=== PATIENT | male | born 1960 | race Caucasian/White ===

== ENCOUNTER 2016-05-24 20:00 | Inpatient (IN) | payer OTHER, MEDICARE ==
[~2016-05-24 20:00] MED LIST: ACYC1CAP16 PO; ASPI81TA82 PO; CALTTAB5 PO; CYCL-36 PO; GLIP5 PO; LOSA50TA PO; METF-324 PO; METO25 PO; NAPR-573 PO; OMEG306C PO; OMEP20TA39 PO; OXYC15TA PO; ROSU40 PO; SYMB160A INH; TAB-TAB PO; VITA250L PO; ZOLP10TA3 PO
[2016-05-24 20:03] VITALS: BP 131/87; PULSE 79; RESP 16; TEMP 97.8; O2SAT 96
[2016-05-24] MEDS ORDERED: CARD360C PO (21:52)
[2016-05-24] MEDS ORDERED: APIX5TAB PO (21:57)
[2016-05-24] MEDS ORDERED: ATOR1TAB18 PO (22:07)
[2016-05-24 23:00] VITALS: PULSE 93
[2016-05-24] MEDS: CYCLOBENZAPRINE HCL 10 MG TAB PO SCH (23:26)
[2016-05-24] MEDS: ZOLPIDEM TARTRATE 10 MG TAB PO SCH (23:26)
[2016-05-24] MEDS: ACYCLOVIR 200 MG CAP PO SCH (23:30)
[2016-05-24] MEDS: BUDESONIDE-FORMOTEROL 160/4.5 MCG INHALER INH SCH (23:30)
[2016-05-24] MEDS: glipiZIDE 5 MG TAB PO SCH (23:44)
[2016-05-24] MEDS: ATORVASTATIN 80 MG TAB PO SCH (23:45)
[2016-05-24] MEDS: APIXABAN 5 MG TABLET PO SCH (23:48)
[2016-05-25] VITALS (18 sets, daily range): BP systolic 103–116; BP diastolic 66–71; PULSE 57–89; RESP 16–20; TEMP 97.8–98.6; O2SAT 96–99
[2016-05-25] MEDS: ACYCLOVIR 200 MG CAP PO SCH ×2 (09:48→22:46)
[2016-05-25] MEDS: DILTIAZEM-CD 180 MG CAP ER PO SCH (09:48)
[2016-05-25] MEDS: PANTOPRAZOLE SOD 20 MG DELAYED RELEASE TAB PO SCH (09:48)
[2016-05-25] MEDS: metFORMIN HCL 500 MG TAB PO SCH ×2 (09:48→18:06)
[2016-05-25] MEDS: APIXABAN 5 MG TABLET PO SCH ×2 (09:49→22:46)
[2016-05-25] MEDS: LOSARTAN 50 MG TAB PO SCH ×2 (09:49→22:47)
[2016-05-25] MEDS: BUDESONIDE-FORMOTEROL 160/4.5 MCG INHALER INH SCH ×2 (09:50→21:00)
[2016-05-25] MEDS: ATORVASTATIN 80 MG TAB PO SCH (22:46)
[2016-05-25] MEDS: glipiZIDE 5 MG TAB PO SCH (22:46)
[2016-05-25] MEDS: ZOLPIDEM TARTRATE 10 MG TAB PO SCH (22:46)
[2016-05-25] MEDS: CYCLOBENZAPRINE HCL 10 MG TAB PO SCH (22:46)
[2016-05-26] VITALS (17 sets, daily range): BP systolic 108–137; BP diastolic 63–74; PULSE 54–86; RESP 16–20; TEMP 97.5–98.2; O2SAT 96–97
[2016-05-26] MEDS: APIXABAN 5 MG TABLET PO SCH ×2 (09:00→22:15)
[2016-05-26 09:39] LABS: AUTOMATED NEUTROPHIL # 2.6 TH/MM3 (1.8-7.7); BASOPHIL % 0.5 % (0.0-2.0); EOSINOPHIL # 0.1 TH/MM3 (0-0.4); EOSINOPHIL % 2.8 % (0.0-4.0); HEMO FLAGS DIFF FINAL; LYMPH % 36.8 % (9.0-44.0); LYMPHOCYTE # 1.8 TH/MM3 (1.0-4.8); MEAN CELL VOLUME 92.9 FL (80.0-100.0); MEAN CORPUSCULAR HEMOGLOBIN 31.4 PG (27.0-34.0); MEAN CORPUSCULAR HGB CONC 33.7 % (32.0-36.0); NEUT % 51.9 % (16.0-70.0); PLATELET COUNT 117 TH/MM3 (150-450); RED BLOOD COUNT 4.09 MIL/MM3 (4.50-5.90); RED CELL DISTRIBUTION WIDTH 13.1 % (11.6-17.2)
[2016-05-26 09:42] LABS: PROTHROMBIN TIME - PATIENT 10.9 SEC (9.8-11.6)
[2016-05-26 09:58] LABS: BICARBONATE 26.9 MEQ/L (21.0-32.0); POTASSIUM 4.1 MEQ/L (3.5-5.1)
[2016-05-26] MEDS: metFORMIN HCL 500 MG TAB PO SCH (10:18)
[2016-05-26] MEDS: DILTIAZEM-CD 180 MG CAP ER PO SCH (10:18)
[2016-05-26] MEDS: ACYCLOVIR 200 MG CAP PO SCH ×2 (10:18→22:13)
[2016-05-26] MEDS: PANTOPRAZOLE SOD 20 MG DELAYED RELEASE TAB PO SCH (10:18)
[2016-05-26] MEDS: BUDESONIDE-FORMOTEROL 160/4.5 MCG INHALER INH SCH (10:19)
[2016-05-26] MEDS: LOSARTAN 50 MG TAB PO SCH ×2 (10:19→22:13)
[2016-05-26] MEDS ORDERED: SODIUM CHLORID 0.9% 500 ML BAG IV ONE (12:52)
[2016-05-26] MEDS ORDERED: ONDANSETRON HCL 4 MG/2 ML VIAL IV PUSH ONE (12:52)
[2016-05-26] MEDS ORDERED: PROPOFOL 200 MG/20 ML AMP IV ONE (12:52)
[2016-05-26] MEDS ORDERED: HEPARIN-D5W INJ 250 ML ONE (16:30)
[2016-05-26] MEDS ORDERED: fentaNYL CITRATE 250 MCG/5 ML AMP ONE (16:31)
[2016-05-26] MEDS ORDERED: ISOPROTERENOL HCL 1 MG/5 ML AMP ONE (16:31)
[2016-05-26] MEDS ORDERED: SODIUM CHLOR 0.9% 250 ML INJ 250 ML ONE (16:31)
[2016-05-26] MEDS ORDERED: HEPARIN SODIUM - IV 10,000 UNITS/10 ML VIAL ONE ×3 (16:31→19:12)
[2016-05-26] MEDS ORDERED: LEVOFLOXACIN 500 MG PREMIX INJ 100 ML IV ONE (17:02)
[2016-05-26] MEDS ORDERED: HEPARIN-NS/PF INJ 500 ML ONE (17:15)
[2016-05-26] MEDS ORDERED: PROTAMINE SULFATE 50 MG/5 ML VIAL ONE (19:12)
[2016-05-26] MEDS ORDERED: FUROSEMIDE 40 MG/4 ML VIAL ONE (19:28)
[2016-05-26] MEDS ORDERED: LIDOCAINE HCL 1% 50 ML VIAL INFIL PRN (19:45)
[2016-05-26] MEDS ORDERED: ONDANSETRON HCL 4 MG/2 ML VIAL IV PRN (19:45)
[2016-05-26] MEDS ORDERED: LORazepam 2 MG/ML VIAL IV PRN (19:45)
[2016-05-26] MEDS ORDERED: oxyCODONE/ACETAMINOPHEN 5 MG/325 MG TAB PO PRN (19:45)
[2016-05-26] MEDS ORDERED: ATROPINE SULFATE 1 MG/ML VIAL IV PRN (19:45)
[2016-05-26] MEDS ORDERED: SODIUM CHLOR 0.9% 250 ML INJ 250 ML IV PRN (19:45)
[2016-05-26] MEDS ORDERED: METOCLOPRAMIDE HCL 10 MG/2 ML VIAL IV PRN (19:45)
[2016-05-26] MEDS ORDERED: BACITRACIN OINT 0.9 GM PKT TOP ONE (19:45)
[2016-05-26] MEDS ORDERED: DO NOT ADM ANY ANTICOAGULANT DRUGS XX PRN (20:20)
[2016-05-26] MEDS ORDERED: MIDAZOLAM HCL 2 MG/2 ML VIAL ONE (20:27)
[2016-05-26] MEDS ORDERED: *morphine SULFATE 8 MG/ML PERIprocedure ONLY ONE (20:40)
[2016-05-26] MEDS: oxyCODONE/ACETAMINOPHEN 5 MG/325 MG TAB PO PRN (22:12)
[2016-05-26] MEDS: ATORVASTATIN 80 MG TAB PO SCH (22:13)
[2016-05-26] MEDS: CYCLOBENZAPRINE HCL 10 MG TAB PO SCH (22:13)
[2016-05-26] MEDS: glipiZIDE 5 MG TAB PO SCH (22:13)
[2016-05-26] MEDS: ZOLPIDEM TARTRATE 10 MG TAB PO SCH (23:31)
[2016-05-27] VITALS (13 sets, daily range): BP systolic 107–125; BP diastolic 58–72; PULSE 68–98; RESP 18; TEMP 97.5; O2SAT 92–97
[2016-05-27] MEDS: oxyCODONE/ACETAMINOPHEN 5 MG/325 MG TAB PO PRN ×2 (02:06→08:26)
[2016-05-27 05:09] LABS: APTT (PATIENT) 25.4 SEC (24.3-30.1); INTERNATIONAL NORMALIZED RATIO 1.1 RATIO; PROTHROMBIN TIME - PATIENT 11.8 SEC (9.8-11.6)
--- NOTE | 2016-05-27 07:34 | MB ---
cc: RAKESH HAWTHORNE M.D. DATE OF CONSULTATION: 05/24/2016 REASON FOR CONSULTATION: Atrial fibrillation with biventricular response unable to control with medication. I was called by Dr. Duff about Mr. Boyce, he is a 55-year-old gentleman with history of high blood pressure, chronic smoker for the past week having on multiple emergency room visit. He was cardioverted on multiple occasion and was unable to come back into sinus rhythm. Multiple medications at to be used. They decided to transfer the gentleman to my service for evaluation and management. I decided to accept the patient. The patient was admitted the chart was reviewed. He was evaluated. ALLERGIES CODEINE PNEUMOCOCCAL VACCINE. FLU VACCINE SOCIAL HISTORY: As mentioned before the gentleman used to smoke. FAMILY HISTORY Noncontributory to his current medical condition. MEDICATIONS The gentleman is on; 1. Acyclovir 200 mg twice a day. 2. Eliquis 5 mg twice per day. 3. Lipitor 80 mg a day. 4. Flexeril 5. Cardizem CD 240 mg a day. 6. Lasix 7. Glipizide. 8. Losartan 9. Metformin. 10. Protonix. 11. Ambien. REVIEW OF SYSTEMS The patient refers no chest pain or discomfort, has recurrent palpitation some shortness of breath. No fever. PHYSICAL EXAMINATION: IN GENERAL: Physical exam, fully oriented. VITAL SIGNS: Blood pressure on evaluation 131/87, pulse 79, respiratory 18. LUNGS: Ventilated. CARDIOVASCULAR SYSTEM: S1-S2 regular. ABDOMEN: Soft. No mass. EXTREMITIES: Upper extremities with no edema. LABORATORY FINDINGS: Electrocardiogram; sinus rhythm, no acute ST T wave changes. Hemoglobin 12.8, white blood cell 5.0, potassium 4.1, creatinine 0.79, INR 1.0. ASSESSMENT AND RECOMMENDATIONS Mr. Boyce has atrial fibrillation. He is on multiple medication heart rate very difficult to control, he is very symptomatic. He is on his fourth emergency room visit. The converted spontaneously and was transferred to this hospital. I had a long conversation with him and his family. Discharged home the electrophysiology study and ablation discussed. The risks, the nature and the benefit of the procedure are clearly stated to him risks include pneumothorax, cardiac perforation, stroke and even . He understood and agreed to proceed. The gentleman decided to stay in the hospital for the procedure because whenever he goes to the emergency room they send him home and he is back with severe tachyarrhythmia, dizziness and near syncope. Medication will be reevaluated. As mentioned before ablation was performed during hospitalization. MD ROSEMARIE Aparicio/dacia /7:33 PM /7:25 AM
[2016-05-27] MEDS: metFORMIN HCL 500 MG TAB PO SCH (08:16)
[2016-05-27] MEDS: APIXABAN 5 MG TABLET PO SCH (08:26)
[2016-05-27] MEDS: LOSARTAN 50 MG TAB PO SCH (08:26)
[2016-05-27] MEDS: PANTOPRAZOLE SOD 20 MG DELAYED RELEASE TAB PO SCH (08:26)
[2016-05-27] MEDS: ACYCLOVIR 200 MG CAP PO SCH (08:26)
[2016-05-27] MEDS: BUDESONIDE-FORMOTEROL 160/4.5 MCG INHALER INH SCH (08:28)
--- NOTE | 2016-05-27 08:56 | PD.CONS ---
[facility] Consult Requested By Dr. Kitchen Reason for Consult medical comanament Primary Care Physician Cesario Candelaria M.D. Diagnoses: History of Present Illness This is a 55-year-old male with history of hypertension, atrial fibrillation who was initially admitted by Dr. Kitchen in his service after Dr. Duff gave him a call. Allegedly patient has been having multiple emergency visits to the emergency department. He was cardioverted on multiple locations but unable to go back to sinus rhythm. Patient was transferred to Dr. Kitchen's service after he accepted the patient and was admitted. We were consulted 05/24/16 but apparently, consult did not go through until 05/26/16 in the afternoon. Per patient, he has been having atrial fibrillation and had multiple cardioversion at [facility]. Finally, he was sent here to the hospital by Dr. Duff , , seen by Dr. Kitchen. An ablation was done 05/26/16. Patient now feels good, no palpitations, chest pain, shortness of breath, nausea, vomiting, lightheadedness. Review of Systems ROS Limitations: Other (All other pertinent systems were reviewed and are negative.) Past Family Social History Allergies: Coded Allergies: Codeine (Verified Allergy, Unknown, rash, 02/25/16) Flu Vaccine (Verified Allergy, Unknown, Anaphylaxis, 02/25/16) Pneumococcal Vaccine (Verified Allergy, Unknown, Anaphylaxis, 02/25/16) Past Medical History Diabetes mellitus Hypertension Atrial fibrillation COPD Past Surgical History Back surgery Ablation Cholecystectomy? Reported Medications Atorvastatin (Atorvastatin Calcium) 80 Mg Tab 80 Mg PO HS Eliquis (Apixaban) 5 Mg Tab 5 Mg PO BID Cardizem CD 24 HR (Diltiazem CD 24 HR) 360 Mg Caper 360 Mg PO DAILY Zolpidem Tartrate 10 Mg Tab 10 Mg PO HS Flexeril (Cyclobenzaprine HCl) 10 Mg Tab 10 Mg PO HS Symbicort (Budesonide/Formoterol Fumarate) 160 Mcg/4.5 Mcg Aer 2 Puff INH BID * SHAKE WELL BEFORE USE * Oxycodone (Oxycodone HCl) 15 Mg Tab 15 Mg PO Q6H PRN Hm Omeprazole (Omeprazole) 20 Mg Tab 20 Mg PO DAILY Losartan Potassium 50 MG (Losartan Potassium) 50 Mg Tab 25 Mg PO BID Zovirax 200 M200 Mg 200 Mg Cap 200 Mg PO BID Glipizide 5 Mg Tab 5 Mg PO HS Metformin ER 24 HR (Metformin HCl) 1,000 Mg Tab 1,000 Mg PO BIDPC Family History Father of a heart attack Social History Smokes one pack a day for several years, about 40 years, no significant alcohol use. Physical Exam Vital Signs Vital Signs Date Time Temp Pulse Resp B/P Pulse Ox O2 Delivery O2 Flow Rate FiO2 05/27/16 06:00 71 05/27/16 05:00 88 05/27/16 04:00 75 05/27/16 03:45 97.5 68 18 107/62 97 05/27/16 03:00 80 05/27/16 01:00 85 05/27/16 00:10 97.5 80 18 107/58 97 05/27/16 00:00 85 05/26/16 23:00 80 05/26/16 22:00 86 05/26/16 21:20 97.8 85 18 110/66 97 05/26/16 21:11 83 14 105/63 96 Nasal Cannula 2 05/26/16 21:00 82 05/26/16 21:00 82 14 104/63 95 Nasal Cannula 2 05/26/16 20:45 78 16 95/63 95 Nasal Cannula 2 05/26/16 20:30 80 16 101/63 95 Nasal Cannula 2 05/26/16 20:18 97.7 83 16 107/70 95 Nasal Cannula 2 05/26/16 20:00 82 05/26/16 19:00 85 05/26/16 16:00 57 05/26/16 15:00 54 05/26/16 15:00 97.5 66 18 108/63 96 05/26/16 14:00 60 05/26/16 13:00 68 05/26/16 12:00 71 05/26/16 11:00 98.0 70 20 137/74 97 05/26/16 11:00 69 05/26/16 10:00 75 05/26/16 09:00 73 Physical Exam Not in distress, well-nourished, looks stated age, eating breakfast. PERRL, pink conjunctiva without injection, anicteric Nose without bleeding, airway patent, oropharynx clear Supple neck Regular rate and rhythm, in sinus, no murmurs. Clear to auscultation and symmetric bilaterally, normal respiratory effort. Normal bowel sounds, soft, non-tender, nondistended, no guarding. Extremities without clubbing, cyanosis, or edema. No rash of generalized distribution. Skin is warm and dry. AAO x3, no cranial nerve deficits, moves all 4 extremities, no focal neurologic deficits Laboratory Laboratory Tests Test 05/26/16 05/27/16 09:24 03:39 White Blood Count 5.0 Red Blood Count 4.09 Hemoglobin 12.8 Hematocrit 38.0 Mean Corpuscular Volume 92.9 Mean Corpuscular Hemoglobin 31.4 Mean Corpuscular Hemoglobin 33.7 Concent Red Cell Distribution Width 13.1 Platelet Count 117 Mean Platelet Volume 9.5 Neutrophils (%) (Auto) 51.9 Lymphocytes (%) (Auto) 36.8 Monocytes (%) (Auto) 8.0 Eosinophils (%) (Auto) 2.8 Basophils (%) (Auto) 0.5 Neutrophils # (Auto) 2.6 Lymphocytes # (Auto) 1.8 Monocytes # (Auto) 0.4 Eosinophils # (Auto) 0.1 Basophils # (Auto) 0.0 CBC Comment DIFF FINAL Differential Comment Prothrombin Time 10.9 11.8 Prothromb Time International 1.0 1.1 Ratio Sodium Level 136 Potassium Level 4.1 Chloride Level 102 Carbon Dioxide Level 26.9 Anion Gap 7 Blood Urea Nitrogen 12 Creatinine 0.79 Estimat Glomerular Filtration 101 Rate Random Glucose 249 Calcium Level 8.5 Activated Partial 25.4 Thromboplast Time Result Diagram: 05/26/1624 05/26/1624 Assessment and Plan Assessment and Plan This is a 55-year-old male with atrial fibrillation, admitted for ablation Atrial fibrillation-further management per cardiology, status post ablation, on Eliquis and Cardizem Dyslipidemia-continue statin Diabetes mellitus-glipizide, metformin Hypertension-continue losartan COPD-not in exacerbation, DuoNeb's as needed, continue Symbicort Thank you very much for this consult, we will follow with you. Discharge per cardiology/primary team. Terrell Cool MD May 27, 2016 08:56
[2016-05-27] MEDS ORDERED: DILTIAZEM-CD 240 MG CAP ER PO SCH (09:00)
--- NOTE | 2016-05-27 11:31 | PD.CARD.PN ---
Subjective Subjective Remarks No chest pain, no shortness of breath Objective Medications Current Medications Medications (Trade) Dose Ordered Sig/Galina Route Start Time Stop Time Status Last Admin (Lipitor) 80 mg HS PO 05/24/16 22:30 05/26/16 22:13 (Symbicort 160-4.5 Inh) 2 puff BID INH 05/24/16 22:30 05/27/16 08:28 (Flexeril) 10 mg HS PO 05/24/16 22:30 05/26/16 22:13 (Glucotrol) 5 mg HS PO 05/24/16 22:30 05/26/16 22:13 (Cozaar) 25 mg BID PO 05/25/16 09:00 05/27/16 08:26 (Ambien) 10 mg HS PO 05/24/16 22:30 05/26/16 23:31 (Glucophage) 1,000 mg BIDPC PO 05/25/16 09:00 05/26/16 10:18 (Protonix) 20 mg DAILY PO 05/25/16 09:00 05/27/16 08:26 (Roxicodone) 15 mg Q6H PRN PO 05/24/16 22:30 05/26/16 12:25 (Zovirax) 200 mg BID PO 05/24/16 22:30 05/27/16 08:26 (Eliquis) 5 mg BID PO 05/26/16 22:30 05/27/16 08:26 (Cardizem Cd) 240 mg DAILY PO 05/27/16 09:00 05/27/16 08:26 (Percocet 5-325 Mg) 1 tab Q4H PRN PO 05/26/16 19:45 (Percocet 5-325 Mg) 2 tab Q4H PRN PO 05/26/16 19:45 05/27/16 08:26 (Ativan Inj) 0.5 mg UNSCH PRN IV 05/26/16 19:45 05/27/16 19:44 Atropine Sulfate 0.5 mg 0.5 mg UNSCH PRN IV 05/26/16 19:45 (NS 250 ml Inj) 250 ml @ 500 mls/hr ONCE PRN IV 05/26/16 19:45 05/27/16 19:44 (Reglan Inj) 10 mg Q4H PRN IV 05/26/16 19:45 (Zofran Inj) 4 mg Q4H PRN IV 05/26/16 19:45 (Xylocaine 1% Inj (50 ml)) 10 ml UNSCH PRN INFIL 05/26/16 19:45 05/27/16 19:44 Miscellaneous Information ALL NURSING DEPARTME... UNSCH PRN XX 05/26/16 20:20 05/27/16 20:19 Vital Signs / I&O Vital Signs Date Time Temp Pulse Resp B/P Pulse Ox O2 Delivery O2 Flow Rate FiO2 05/27/16 10:00 84 05/27/16 09:00 98 05/27/16 08:15 97.5 91 18 125/72 92 05/27/16 08:00 71 05/27/16 07:00 72 05/27/16 06:00 71 05/27/16 05:00 88 05/27/16 04:00 75 05/27/16 03:45 97.5 68 18 107/62 97 05/27/16 03:00 80 05/27/16 01:00 85 05/27/16 00:10 97.5 80 18 107/58 97 05/27/16 00:00 85 05/26/16 23:00 80 05/26/16 22:00 86 05/26/16 21:20 97.8 85 18 110/66 97 05/26/16 21:11 83 14 105/63 96 Nasal Cannula 2 05/26/16 21:00 82 05/26/16 21:00 82 14 104/63 95 Nasal Cannula 2 05/26/16 20:45 78 16 95/63 95 Nasal Cannula 2 05/26/16 20:30 80 16 101/63 95 Nasal Cannula 2 05/26/16 20:18 97.7 83 16 107/70 95 Nasal Cannula 2 05/26/16 20:00 82 05/26/16 19:00 85 05/26/16 16:00 57 05/26/16 15:00 54 05/26/16 15:00 97.5 66 18 108/63 96 05/26/16 14:00 60 05/26/16 13:00 68 05/26/16 12:00 71 I/O 05/26/16 05/26/16 05/26/16 05/27/16 05/27/1617 07:00 15:00 23:00 07:00 15:00 23:00 Intake Total 750 ml 2040 ml Output Total 1751 ml 1450 ml 1250 ml Balance -1001 ml 590 ml -1250 ml Intake Oral 750 ml 240 ml Other 1800 ml Output Urine Total 1750 ml 1250 ml Stool Total 1 ml Other 1450 ml # Voids 4 Physical Exam GENERAL: NAD, AAOx3 SKIN: Warm and dry. HEAD: Atraumatic. Normocephalic. EYES: Pupils equal and round. No scleral icterus. No injection or drainage. ENT: No nasal bleeding or discharge. Mucous membranes pink and moist. NECK: Trachea midline. No JVD. CARDIOVASCULAR: Regular rate and rhythm. RESPIRATORY: No accessory muscle use. Clear to auscultation. Breath sounds equal bilaterally. GASTROINTESTINAL: Abdomen soft, non-tender, nondistended. Hepatic and splenic margins not palpable. MUSCULOSKELETAL: Extremities without clubbing, cyanosis, or edema. No obvious deformities. NEUROLOGICAL: Awake and alert. No obvious cranial nerve deficits. Motor grossly within normal limits. Five out of 5 muscle strength in the arms and legs. Normal speech. PSYCHIATRIC: Appropriate mood and affect; insight and judgment normal. Laboratory Laboratory Tests Test 05/27/16 03:39 Prothrombin Time 11.8 SEC Prothromb Time International 1.1 RATIO Ratio Activated Partial 25.4 SEC Thromboplast Time Assessment and Plan Problem List: (1) Atrial fibrillation with rapid ventricular response (2) S/P ablation of atrial fibrillation (3) HTN (hypertension) (4) DM (diabetes mellitus) (5) COPD (chronic obstructive pulmonary disease) Assessment and Plan 1) s/p AFib ablation, doing well, currently NSR 2) Continue Apixaban 3) Cardizem CD daily 4) Discharge today 5) Follow up with Dr. Kitchen in 2 weeks Joseph Junior DO May 27, 2016 11:30
[2016-05-27] MEDS ORDERED: CARD240C6 PO (11:35)
--- NOTE | 2016-05-27 11:36 | HHI.DS ---
Discharge Summary Admission Date May 24, 2016 at 20:00 Discharge Date: May 27, 2016 Admitting Diagnosis (1) Atrial fibrillation with rapid ventricular response Diagnosis: Principal (2) S/P ablation of atrial fibrillation Diagnosis: Principal Procedures s/p Afib ablation, currently NSR CBC/BMP: 05/26/16 0924 05/26/16 0924 Significant Findings Laboratory Tests Test 05/26/16 05/27/16 09:24 03:39 Red Blood Count 4.09 MIL/MM3 (4.50-5.90) Hemoglobin 12.8 GM/DL (13.0-17.0) Hematocrit 38.0 % (39.0-51.0) Platelet Count 117 TH/MM3 (150-450) Random Glucose 249 MG/DL (74-106) Prothrombin Time 11.8 SEC (9.8-11.6) PE at Discharge GENERAL: NAD SKIN: Warm and dry. HEAD: Atraumatic. Normocephalic. EYES: Pupils equal and round. No scleral icterus. No injection or drainage. ENT: No nasal bleeding or discharge. Mucous membranes pink and moist. NECK: Trachea midline. No JVD. CARDIOVASCULAR: Regular rate and rhythm. RESPIRATORY: No accessory muscle use. Clear to auscultation. Breath sounds equal bilaterally. GASTROINTESTINAL: Abdomen soft, non-tender, nondistended. Hepatic and splenic margins not palpable. MUSCULOSKELETAL: Extremities without clubbing, cyanosis, or edema. No obvious deformities. NEUROLOGICAL: Awake and alert. No obvious cranial nerve deficits. Motor grossly within normal limits. Five out of 5 muscle strength in the arms and legs. Normal speech. PSYCHIATRIC: Appropriate mood and affect; insight and judgment normal. Pt Condition on Discharge: Good Discharge Disposition: Discharge Home Discharge Instructions DIET: Follow Instructions for: Heart Healthy Diet Activities you can perform: Regular-No Restrictions New Medications: Diltiazem CD 24 HR (Cardizem CD 24 HR) 240 Mg Caper 240 MG PO DAILY Blood Pressure Management #90 Ref 1 CAP Continued Medications: Apixaban (Eliquis) 5 Mg Tab 5 MG PO BID Blood Clot Prevention #60 Ref 0 TAB Atorvastatin (Atorvastatin) 80 Mg Tab 80 MG PO HS Cholesterol Management #30 Ref 0 TAB Budesonide-Formoterol Fumarate (Symbicort) 160 Mcg/4.5 Mcg Aer 2 PUFF INH BID * SHAKE WELL BEFORE USE * #1 BOX Cyclobenzaprine Hcl (Flexeril) 10 Mg Tab 10 MG PO HS #10 TAB Glipizide (Glipizide) 5 Mg Tab 5 MG PO HS TAB Losartan Potassium 50 MG (Losartan Potassium 50 MG) 50 Mg Tab 25 MG PO BID TAB Metformin ER 24 HR (Metformin ER 24 HR) 1,000 Mg Tab 1000 MG PO BIDPC TAB Omeprazole (Hm Omeprazole) 20 Mg Tab 20 MG PO DAILY TAB Oxycodone (Oxycodone) 15 Mg Tab 15 MG PO Q6H PRN PAIN TAB Zolpidem Tartrate (Zolpidem Tartrate) 10 Mg Tab 10 MG PO HS TAB () 200 Mg Cap 200 MG PO BID CAP Discontinued Medications: Diltiazem CD 24 HR (Cardizem CD 24 HR) 360 Mg Caper 360 MG PO DAILY #30 Ref 0 CAP Joseph Junior DO May 27, 2016 11:36
[2016-05-27] MEDS ORDERED: INSULIN ASPART SUPPLEMENTAL SCALE SQ SCH (12:00)
--- NOTE | 2016-05-29 22:40 | EKG ---
Date Performed: 05/26/2016 Time Performed: 20:39:52 PTAGE: 55 years EKG: Sinus rhythm NORMAL ECG PREVIOUS TRACING : 08/14/2000 18.59 Compared to prior tracing no significant change DOCTOR: Joseph Junior Interpretating Date/Time 05/29/2016 22:38:13
--- NOTE | 2016-06-13 11:54 | PD.CARD ---
AFIB ABLATION 2 PROCEDURE DATE: May 29, 2016 CARDIOVERSION: No Atrial Fibrillation Ablation 2 PROCEDURE Electrophysiology study, CS cannulation, 3-D mapping, right and left heart catheterization, transseptal approach, left atrial pacing, mapping and ablation of atrial fibrillation, pulmonary vein isolation, roof line creation, posterior wall ablation and mitral valve line, as well as intracardiac echo. Very difficult and complex case. HISTORY Mr. Boyce is a 56 -year-old male with atrial fibrillation,very difficult to control with medication, previous cardioversions, previous hospitalizations, on anticoagulation, symptomatic was transferred for electrophysiology study and atrial fibrillation ablation. The risks, the nature and the benefit of procedure were clearly stated to him . The risks include pneumothorax, cardiac perforation, stroke and even . He understood and agreed to proceed. PROCEDURE As written informed consent was obtained prior to transesophageal echo, the patient was kept on the table where he was intubated and put under general anesthesia by anesthesiologist. Then, he was prepped and draped in the sterile fashion. At that point, using the modified sterile technique, the left femoral vein was cannulated on three occasions and three guide wires were advanced. Over the wires and one 7-Greek, one 6-Greek and one 10-Greek Hemaquet were advanced. Then, the left femoral artery was cannulated on one occasion and one guidewire was advanced. Over the wire 4-Greek Hemaquet was advanced. Subsequently the right femoral vein was cannulated on one occasion and one guidewire was advanced. Over the wire an 8-Greek Hemaquet was advanced. Then , under fluoroscopic guidance through the 7 and 6-Greek Hemaquet, two 5-Greek Jus curved quadripolar electrophysiology catheters were placed and positioned on the coronary sinus and the His. The patient was in sinus rhythm. Basic intervals were measured, they were within normal limits. Subsequently through the 10-Greek Hemaquet, and intracardiac echo catheter was advanced into the right atrium. Multiple views were obtained. There was no pericardial effusion. Pulmonary vein was clearly visualized and there was adequate flow. There was moderate to severely decrease the left ventricular wall contractility. There was severe left atrial enlargement. Smoke seen in left atrial. Foci was clearly visualized. The aortic root as well as the aortic valve was clearly visualized. Then, the 8 Greek Hemaquet was exchanged for a transseptal Argilus sheath that was placed all the way to the superior vena cava. Through the dilator, a [place] needle was advance. Then in the ABEL 30 with intracardiac echo guiding the sheath was advanced posteriorly on the foci and engaged. Once engaged the needle was advanced. RF was delivered for 2 sec, I was able to cross through the atrial septum without difficulty. At this point the dilator was advanced. The needle was pulled back and subsequently the sheath was advanced. Once I realized the sheath crossed on the intracardiac echo the dilator and the needle was removed. The sheath was subsequently flushed, fluid movement seen in the left atrium. That indicated sheath in place. Patient already received 12200 units of heparin. The goal is to keep an ACT around the 350 seconds. Then, an esophageal probe was advanced to measure initiation temperature during ablation. If there is any increase of 0.5 degrees Celsius during ablation we will stop and move to a different part of the left atrium or wait until the temperature comes down and continue with ablation. Through the argilus sheath, a [place] Ignacio 20 poles circumferential mapping catheter was advanced. Using Spangle endocardial solution mapping system a three-dimensional configuration of the left atrium was obtained. I identified the left superior and inferior vein, the left atrial appendage as well as the mitral valve. Then, the right superior and the right inferior vein. After the dimensional configuration and the mapping of the left atrium was complete I did remove the circumferential catheter and replaced by a [place] Ignacio Tacticat, 65 cm, 3.5 mm irrigated tip mapping and radiofrequency ablation catheter. First I did proceed with isolation of the left superior and inferior vein. I did make subsequently a fond du lac around both veins. Posterior wall was ablated.A mitral line was also created. Anterior fractionated signals were also eliminated. Then, I did proceeded with isolation of the right superior and inferior vein as well as the nadine. At that point, the ablation catheter was removed. The circumferential catheter was advanced into the veins. The left superior vein at the beginning of the procedure well and was very active and there was no significant signal seen there. I did pace at the left superior vein conduction to the left atrium. Pacing from the coronary sinus showed no conduction. Subsequently the left inferior vein was evaluated also, there was no signal at the left inferior vein. The pacing also showed block. Then, the catheter was placed at the right superior vein, post ablation there was no conduction neither. There was no conduction in the right inferior and right middle vein. Basic intervals were measured. At this point, the procedure was complete. No tachyarrhythmia was induced. Intracardiac echo showed no pericardial effusion. There was still good flow in the pulmonary veins. The transseptal sheath was pulled back to the right atrium. The catheter was removal. The Argelius sheath was exchanged for an 9 Greek Hemaquet. The patient was stable. That was a very complex case. No incident to report. he tolerated the procedure. Blood loss minimal. 1. Electrocardiogram: At baseline the patient was in sinus rhythm fibrillation. Postprocedure EKG was unchanged. 2. Basic interval: The base interval was around 780 milliseconds. Post ablation , AH at 140 and HV was around 50 milliseconds. 3. Atrial pacing protocol: Pacing from the pulmonary vein showed no conduction to the left atrium. Pacing from the coronary sinus showed no conduction to the pulmonary vein, indicated bilateral line of block. Ablation atrial fibrillation was mapped, the veins were very active post ablation, there was no conduction and the veins were basically quiet. Ablation was successful. CONCLUSIONS Successful electrophysiology study, mapping and radiofrequency ablation of atrial fibrillation, pulmonary vein isolation, posterior wall ablation, anterior wall ablation, mitral line creation. COMMENT/RECOMMENDATIONS The patient to be transferred to the telemetry unit. He will be observed, when stable can be discharged home. Sabrina Kitchen MD Jun 13, 2016 11:54
--- NOTE | 2016-06-24 15:04 | ETE ---
Study Study Date:05/26/2016 STUDY CONCLUSIONS SUMMARY - Left ventricle: The cavity size was normal. Wall thickness was normal. Systolic function was normal. The estimated ejection fraction was in the range of 55% to 60%. Wall motion was normal; there were no regional wall motion abnormalities. - Aortic valve: No evidence of vegetation. - Mitral valve: No evidence of vegetation. Mild regurgitation. - Left atrium: The atrium was dilated. No evidence of thrombus in the atrial cavity or appendage. No evidence of thrombus in the atrial cavity or appendage. - Right atrium: No evidence of thrombus in the atrial cavity or appendage. - Atrial septum: No defect or patent foramen ovale was identified. Echo contrast study showed no [id number] atrial level shunt, at baseline or with provocation. - Tricuspid valve: No evidence of vegetation. - Pulmonic valve: No evidence of vegetation. If LV function is below 40, please consider prescribing an ACEI or ARB or document rationale for non-use. PROCEDURE DATA Consent: The risks, benefits, and alternatives to the procedure were explained to the patient and informed consent was obtained. Procedure: Initial setup. The patient was brought to the laboratory in the fasting state. Intravenous access was obtained. Surface ECG leads and pulse oximetric signals were monitored. Sedation. Conscious sedation was administered by anesthesiology. Transesophageal echocardiography. Topical anesthesia was obtained using viscous lidocaine. A transesophageal probe was inserted by the attending local delivery truck driver. Image quality was good. Study completion: All IVs inserted during the procedure were removed. The patient tolerated the procedure well. There were no complications. Transesophageal echocardiography. 2D, complete spectral Doppler, and color Doppler. CARDIAC ANATOMY LEFT VENTRICLE: The cavity size was normal. Wall thickness was normal. Systolic function was normal. The estimated ejection fraction was in the range of 55% to 60%. Wall motion was normal; there were no regional wall motion abnormalities. AORTIC VALVE: Trileaflet; normal thickness, mildly calcified leaflets. Cusp separation was normal. No evidence of vegetation. Doppler: No significant regurgitation. Aorta: - There was no atheroma. There was no evidence for dissection. Aortic root: The aortic root was not dilated. Ascending aorta: The ascending aorta was normal in size. Aortic arch: The aortic arch was normal in size. Descending aorta: The descending aorta was normal in size. MITRAL VALVE: Mildly thickened leaflets, . Leaflet separation was normal. No evidence of vegetation. Doppler: Mild regurgitation. LEFT ATRIUM: The atrium was dilated. No evidence of thrombus in the atrial cavity or appendage. No evidence of thrombus in the atrial cavity or appendage. The appendage was morphologically a left appendage, multilobulated, and of normal size. Emptying velocity was normal. ATRIAL SEPTUM: No defect or patent foramen ovale was identified. Echo contrast study showed no [id number]-[id number] atrial level shunt, at baseline or with provocation. RIGHT VENTRICLE: The cavity size was normal. Wall thickness was normal. Systolic function was normal. PULMONIC VALVE: Structurally normal valve. No evidence of vegetation. TRICUSPID VALVE: Structurally normal valve. Leaflet separation was normal. No evidence of vegetation. Doppler: Trace regurgitation. PULMONARY ARTERY: The main pulmonary artery was normal-sized. RIGHT ATRIUM: The atrium was normal in size. No evidence of thrombus in the atrial cavity or appendage. The appendage was morphologically a right appendage. PERICARDIUM: There was no pericardial effusion. Prepared and signed by Sabrina Kitchen [id number]
== END 2016-05-27 12:53 | disposition home or self-care (01) | DRG 274 ==
LOC: HCIN 20:00 → OBSVTOIN 20:00
PROVIDERS: ADMIT Internal Medicine Interventional Cardiology; ATTEND Internal Medicine Interventional Cardiology
PROC: 4A0234Z Measurement of Cardiac Electrical Activity, Percutaneous Approach (ICD-10-PCS; 2016-05-26)
PROC: 02K83ZZ Map Conduction Mechanism, Percutaneous Approach (ICD-10-PCS; 2016-05-26)
PROC: 4A023N8 Measurement of Cardiac Sampling and Pressure, Bilateral, Percutaneous Approach (ICD-10-PCS; 2016-05-26)
PROC: B246ZZ4 Ultrasonography of Right and Left Heart, Transesophageal (ICD-10-PCS; 2016-05-26)
PROC: 02583ZZ Destruction of Conduction Mechanism, Percutaneous Approach (ICD-10-PCS; principal; 2016-05-26 15:15)
DX: I48.91 Unspecified atrial fibrillation (principal); I10 Essential (primary) hypertension; J44.9 Chronic obstructive pulmonary disease, unspecified; F17.210 Nicotine dependence, cigarettes, uncomplicated; E11.9 Type 2 diabetes mellitus without complications; E78.5 Hyperlipidemia, unspecified; Z79.84 Long term (current) use of oral hypoglycemic drugs
CPT/HCPCS: 80048; 85002; 85025; 85610; 85730; 93005; 93312; 93320; 93325; 93613; 93623; 93656; 93662; C1730; C1731; C1732; C1759; C1766; C2630; J1644; J1815; J1940; J1956; J2250; J2270; J2405; J2720; J3010; J7040; J7050